=== PATIENT | male | born 1985 | race Caucasian/White ===

== ENCOUNTER 2023-07-14 21:45 | Inpatient (IN) | payer OTHER ==
[~2023-07-14] VITALS: Ht 180.3 cm; Wt 99.5 kg
[2023-07-14 22:28] LABS: BASOPHILS ABSOLUTE AUTO 0.04 K/mm3 (0.00-0.23); BASOPHILS PERCENT AUTO 0 % (0-2); EOSINOPHILS ABSOLUTE AUTO 0.02 K/mm3 (0.00-0.68); EOSINOPHILS PERCENT AUTO 0 % (0-6); Hematocrit 39.2 % (37.0-53.0); Hemoglobin 13.6 g/dL (13.5-17.5); IMMATURE GRAN ABSOLUTE AUTO 0.16 K/mm3 (0.00-0.10); IMMATURE GRAN PERCENT AUTO 1 % (0-1); LYMPHOCYTES ABSOLUTE AUTO 0.96 K/mm3 (0.84-5.20); LYMPHOCYTES PERCENT AUTO 7 % (21-46); MONOCYTES ABSOLUTE AUTO 0.67 K/mm3 (0.16-1.47); MONOCYTES PERCENT AUTO 5 % (4-13); Mean Corpuscular HGB 29.9 pg (26.0-34.0); Mean Corpuscular HGB Conc 34.7 g/dL (31.5-36.5); Mean Corpuscular Volume 86 fL (80-100); Mean Platelet Volume 10.6 fL (9.1-12.4); NEUTROPHILS ABSOLUTE AUTO 11.51 K/mm3 (1.96-9.15); NEUTROPHILS PERCENT AUTO 86 % (41-73); Platelet Count 265 K/mm3 (150-400); RDW Coefficient Variation 14.5 % (11.7-14.2); RDW Standard Deviation 46.2 fL (35.1-46.3); Red Blood Cell Count 4.55 M/mm3 (4.30-5.90); White Blood Cell Count 13.36 K/mm3 (4.00-11.30)
[2023-07-14 23:01] LABS: Albumin, Blood 2.3 g/dL (3.4-5.0); Albumin/Globulin Ratio 0.5 (0.8-1.8); Bilirubin, Total 0.9 mg/dL (0.1-1.0); Bun/Creatinine Ratio 14.5 (12.0-20.0); Calcium, Blood 7.7 mg/dL (8.5-10.1); Creatinine, Blood 1.1 mg/dL (0.60-1.20); Globulin, Blood 4.6 g/dL (2.2-4.0); Potassium, Blood 3.5 mmol/L (3.5-5.5); Total Protein, Blood 6.9 g/dL (6.4-8.2)
[2023-07-14 23:37] LABS: Source, Urine Clean Catch
[2023-07-14 23:39] LABS: Bilirubin, Urine Neg (Neg); Blood, Urine 2+ (Neg); Glucose Qualitative, Urine Neg (Neg); Ketones, Urine Neg (Neg); Leukocyte Esterase, Urine Neg (Neg); Nitrite, Urine Neg (Neg); Protein, Urine 2+ (Neg); Specific Gravity, Urine 1.005 (1.003-1.022); Urobilinogen, Urine 3+ (Normal); pH, Urine 6.5 (5.0-8.0)
[2023-07-15 00:15] LABS: Appearance, Urine Clear (Clear); Bacteria Rare /hpf; Color, Urine Yellow (P-Yellow); Red Blood Cells, Urine 0-2 /hpf (0-2); Squamous Epithelial Cells Not Seen /hpf (Few); White Blood Cells, Urine 0-2 /hpf (0-5)
[2023-07-15] MEDS ORDERED: ONDA4ODT MM (01:48)
[2023-07-15 02:06] LABS: Anti-Xa UFH, PHA Monitoring <0.10 IU/mL; International Normalized Ratio 1.25
[2023-07-15 05:30] LABS: BASOPHILS ABSOLUTE AUTO 0.01 K/mm3 (0.00-0.23); BASOPHILS PERCENT AUTO 0 % (0-2); EOSINOPHILS ABSOLUTE AUTO 0.01 K/mm3 (0.00-0.68); EOSINOPHILS PERCENT AUTO 0 % (0-6); Hematocrit 37.4 % (37.0-53.0); Hemoglobin 12.8 g/dL (13.5-17.5); IMMATURE GRAN ABSOLUTE AUTO 0.16 K/mm3 (0.00-0.10); IMMATURE GRAN PERCENT AUTO 1 % (0-1); LYMPHOCYTES ABSOLUTE AUTO 1.48 K/mm3 (0.84-5.20); LYMPHOCYTES PERCENT AUTO 13 % (21-46); MONOCYTES ABSOLUTE AUTO 0.77 K/mm3 (0.16-1.47); MONOCYTES PERCENT AUTO 7 % (4-13); Mean Corpuscular HGB 29.8 pg (26.0-34.0); Mean Corpuscular HGB Conc 34.2 g/dL (31.5-36.5); Mean Corpuscular Volume 87 fL (80-100); Mean Platelet Volume 10.9 fL (9.1-12.4); NEUTROPHILS ABSOLUTE AUTO 9.31 K/mm3 (1.96-9.15); NEUTROPHILS PERCENT AUTO 79 % (41-73); Platelet Count 255 K/mm3 (150-400); RDW Coefficient Variation 14.6 % (11.7-14.2); RDW Standard Deviation 46.5 fL (35.1-46.3); White Blood Cell Count 11.74 K/mm3 (4.00-11.30)
[2023-07-15 06:07] LABS: Albumin, Blood 2.3 g/dL (3.4-5.0); Albumin/Globulin Ratio 0.5 (0.8-1.8); Bun/Creatinine Ratio 13.5 (12.0-20.0); Calcium, Blood 7.7 mg/dL (8.5-10.1); Creatinine, Blood 1.11 mg/dL (0.60-1.20); Globulin, Blood 4.4 g/dL (2.2-4.0); Magnesium, Blood 2.2 mg/dL (1.6-2.4); Phosphorus, Blood 2.3 mg/dL (2.5-4.9); Potassium, Blood 3.7 mmol/L (3.5-5.5); Total Protein, Blood 6.7 g/dL (6.4-8.2)
--- NOTE | 2023-07-15 06:30 | NUR ---
SHIFT SUMMARY 37 YR M ADMITTED ON 07/14/23 FOR SUPERIOR MESENTERIC THROMBUS. FULL CODE. PT IS A&O X 4 AND INDEPENDANT IN THE ROOM. HE HAS NO C/O PAIN OR DISCOMFORT AT THIS TIME. ALSO NO C/O N/V THIS SHIFT. HE IS CURRENTLY ON A HEPARIN DRIP AND A SECOND IV WAS STARTED THIS SHIFT FOR ACCESS TO RUN LR. HE PRESENTED TO THIS UNIT W/ HIS AT BEDSIDE. SHE LEFT EARLY THIS A.M. FOR WORK AND HIS FATHER IS NOW IN THE ROOM WITH HIM. HE IS VERY PLEASANT AND COOPERATIVE WITH CARE.
[2023-07-15 07:22] VITALS: BP 112/72
[2023-07-15 15:46] VITALS: BP 118/68
[2023-07-15 18:16] LABS: Anti-Xa UFH, PHA Monitoring 0.16 IU/mL
--- NOTE | 2023-07-15 18:40 | NUR ---
SHIFT SUMMARY- PT IS A/O, PLESANT AND COOPERATIVE. DIET WAS ADVANCED TO CLEAR LIQUID TOLORATING WELL. HEPRIN IS INFUSING WITH MINIMAL IMPACT ON LABS, FOLLOWED PHARMACY TITRATION. RASH ON LOWER EXTREMITIES BEING TREATED WITH CREAM. WAS AT BEDSIDE THIS SHIFT. PT SLEPT INTERMITENTLY THROUGHOUT THE SHIFT. HIS BED IS IN THE LOW POSITON AND CALL LIGHT IS WITIN REACH.
[2023-07-15 19:22] VITALS: BP 112/73
[2023-07-16 02:18] VITALS: BP 116/67
[2023-07-16 05:50] LABS: Anti-Xa UFH, PHA Monitoring 0.26 IU/mL
[2023-07-16 07:16] VITALS: BP 119/73
[2023-07-16 07:53] LABS: Hematocrit 35.2 % (37.0-53.0); Hemoglobin 11.9 g/dL (13.5-17.5); Mean Corpuscular HGB 29.9 pg (26.0-34.0); Mean Corpuscular HGB Conc 33.8 g/dL (31.5-36.5); Mean Corpuscular Volume 88 fL (80-100); Mean Platelet Volume 11.4 fL (9.1-12.4); Platelet Count 318 K/mm3 (150-400); RDW Coefficient Variation 14.9 % (11.7-14.2); RDW Standard Deviation 48.6 fL (35.1-46.3); Red Blood Cell Count 3.98 M/mm3 (4.30-5.90); White Blood Cell Count 10.69 K/mm3 (4.00-11.30)
[2023-07-16 08:23] LABS: Albumin/Globulin Ratio 0.5 (0.8-1.8); Bilirubin, Total 0.8 mg/dL (0.1-1.0); Bun/Creatinine Ratio 13.3 (12.0-20.0); Calcium, Blood 7.6 mg/dL (8.5-10.1); Creatinine, Blood 1.05 mg/dL (0.60-1.20); Globulin, Blood 4.1 g/dL (2.2-4.0); Total Protein, Blood 6.1 g/dL (6.4-8.2)
[2023-07-16 15:01] VITALS: BP 118/78
--- NOTE | 2023-07-16 19:05 | NUR ---
SUMMARY- NO ACUTE EVENTS THIS SHIFT. PT HAD MINOR PARKER AND RLQ PAIN CONTROLLED BY TYLENOL. PT TOLERATED CLEAR LIQUID DIET. NO EMESIS. INDEPENDENT IN ROOM. AAOX4.
[2023-07-16 20:20] VITALS: BP 122/71
[2023-07-17 03:59] VITALS: BP 107/67
--- NOTE | 2023-07-17 04:52 | NUR ---
PT A/O, CALM/COOPERATIVE AND ABLE TO MAKE NEEDS KNOWN. SPOUSE AT BEDSIDE AND SUPPORTIVE. TOLERATING CLEAR DIET WITH NO N/V. INDEPENDENT IN ROOM. SLEPT WELL THROUGHOUT THE NIGHT IN BETWEEN CARE. ROUNDING COMPLETED. CONTINUITY OF CARE ENDORSED TO ON COMING NURSE.
[2023-07-17 07:10] VITALS: BP 118/74
--- NOTE | 2023-07-17 08:35 | NUR ---
ASSUMED CARE: RECIEVED REPORT FROM VENANCIO STOUT. PT SITTING ON EDGE OF BED, AT BEDSIDE. CT HERE TO COLLECT PT VIA WHEEL CHAIR FOR IMAGING. NO FURTHER NEEDS AT THIS TIME.
[2023-07-17 11:18] LABS: Hematocrit 36.8 % (37.0-53.0); Hemoglobin 12.2 g/dL (13.5-17.5); Mean Corpuscular HGB 29.4 pg (26.0-34.0); Mean Corpuscular HGB Conc 33.2 g/dL (31.5-36.5); Mean Corpuscular Volume 89 fL (80-100); Mean Platelet Volume 10.6 fL (9.1-12.4); Platelet Count 463 K/mm3 (150-400); RDW Standard Deviation 48.7 fL (35.1-46.3); Red Blood Cell Count 4.15 M/mm3 (4.30-5.90); White Blood Cell Count 11.51 K/mm3 (4.00-11.30)
--- NOTE | 2023-07-17 11:20 | NUR ---
DR ZIMMER WROTE AN ORDER FOR AN ECHO. AFTER SPEAKING WITH NURSING DONOR SERVICES TECHNICIAN IT WAS FOUND THAT [employer] IS GONE TODAY AND IT WOULD HAVE TO BE ORDERED STAT WITH CARDIOLOGY INVOLVEMENT TO BE DONE TODAY. CALL TO DR ZIMMER TO RELAY THIS. DR STATED HE WOULD DISCUSS FURTHER WITH DR CLARK AND RELAY BACK TO NURSE.
[2023-07-17 11:38] LABS: Albumin, Blood 2.1 g/dL (3.4-5.0); Albumin/Globulin Ratio 0.5 (0.8-1.8); Bilirubin, Total 0.5 mg/dL (0.1-1.0); Bun/Creatinine Ratio 9.2 (12.0-20.0); Calcium, Blood 7.6 mg/dL (8.5-10.1); Creatinine, Blood 0.97 mg/dL (0.60-1.20); Globulin, Blood 4.5 g/dL (2.2-4.0); Potassium, Blood 3.8 mmol/L (3.5-5.5); Total Protein, Blood 6.6 g/dL (6.4-8.2)
[2023-07-17 16:48] VITALS: BP 122/73
--- NOTE | 2023-07-17 17:41 | NUR ---
SHIFT SUMMARY: PT RESTING IN BED, AT BEDSIDE. BLOOD CULTURES COMPLETED. HESITANT TO SEND PT HOME DUE TO FEVERS OVER NIGHT AND INCREASED WBC THIS SHIFT. ECHO TO BE COMPLETED TOMORROW. PT TOLERATING LOW FAT DIET WELL. EDUCATED PT AND ON RESOURCES FOR HEALTHY MEAL PLANNING. NO ACUTE NEEDS OR CONCERNS AT THIS TIME.
[2023-07-17 21:24] VITALS: BP 108/74
[2023-07-18 05:14] VITALS: BP 118/78
[2023-07-18 05:27] LABS: BASOPHILS ABSOLUTE AUTO 0.03 K/mm3 (0.00-0.23); BASOPHILS PERCENT AUTO 0 % (0-2); EOSINOPHILS ABSOLUTE AUTO 0.03 K/mm3 (0.00-0.68); EOSINOPHILS PERCENT AUTO 0 % (0-6); Hematocrit 36.6 % (37.0-53.0); Hemoglobin 12.3 g/dL (13.5-17.5); IMMATURE GRAN ABSOLUTE AUTO 0.27 K/mm3 (0.00-0.10); IMMATURE GRAN PERCENT AUTO 2 % (0-1); LYMPHOCYTES ABSOLUTE AUTO 1.78 K/mm3 (0.84-5.20); LYMPHOCYTES PERCENT AUTO 13 % (21-46); MONOCYTES ABSOLUTE AUTO 1.07 K/mm3 (0.16-1.47); MONOCYTES PERCENT AUTO 8 % (4-13); Mean Corpuscular HGB 29.5 pg (26.0-34.0); Mean Corpuscular HGB Conc 33.6 g/dL (31.5-36.5); Mean Corpuscular Volume 88 fL (80-100); Mean Platelet Volume 10.5 fL (9.1-12.4); NEUTROPHILS ABSOLUTE AUTO 10.28 K/mm3 (1.96-9.15); NEUTROPHILS PERCENT AUTO 77 % (41-73); Platelet Count 599 K/mm3 (150-400); RDW Coefficient Variation 15.1 % (11.7-14.2); RDW Standard Deviation 48.4 fL (35.1-46.3); Red Blood Cell Count 4.17 M/mm3 (4.30-5.90); White Blood Cell Count 13.46 K/mm3 (4.00-11.30)
[2023-07-18 05:55] LABS: Albumin, Blood 2.3 g/dL (3.4-5.0); Albumin/Globulin Ratio 0.5 (0.8-1.8); Bilirubin, Total 0.5 mg/dL (0.1-1.0); Bun/Creatinine Ratio 10.8 (12.0-20.0); Calcium, Blood 8.2 mg/dL (8.5-10.1); Creatinine, Blood 1.02 mg/dL (0.60-1.20); Globulin, Blood 4.8 g/dL (2.2-4.0); Total Protein, Blood 7.1 g/dL (6.4-8.2)
[2023-07-18 07:15] VITALS: BP 117/70
[2023-07-18] MEDS ORDERED: SILD25T PO (11:54)
[2023-07-18 15:40] VITALS: BP 119/78
--- NOTE | 2023-07-18 17:34 | NUR ---
SHIFT SUMMARY PT IS AxOx4. PLEASANT AND COOPERATIVE WITH CARE. PT DENIES ANY PAIN, NAUSEA OR VOMITING THIS SHIFT. PT TOLERATED MEALS WITHOUT DIFFICULTY TODAY. ECHO COMPLTED TODAY. EXPECTED PLANS WERE TO DISCHARGE THIS AFTERNOON. UNFORTUNATELY, PT'S ORAL TEMP READ 101.9 AT AFTERNOON VITALS. PROVIDERS WERE NOTIFIED AND PLANS CHANGED TO CONTINUE TO MONITOR PT IN HOSPITAL OVERNIGHT. PT IS CURRENTLY RESTING IN BED. DENIES ANY NEEDS AT THIS TIME. FAMILY UPDATED ON PLAN OF CARE.
[2023-07-18 19:42] VITALS: BP 127/84
--- NOTE | 2023-07-19 02:58 | NUR ---
LATE PREVIOUS EXCELLENCE LEADER SUMMARY NOTE FROM 07/18/23 PATIENT SLEPT WELL OVERNIGHT, RESPONDED WELL TO TYLENOL FOR TEMP OF 100.7 EARLY IN SHIFT. NO FURTHER FEVER OVERNIGHT. NO COMPLAINTS OF PAIN OR DISCOMFORT, OOB INDEPENDENTLY TO BATHROOM . HOPING FOR DISCHARGE
--- NOTE | 2023-07-19 04:35 | NUR ---
SHIFT SUMMARY SHANNA WAS ALERT AND FULLY ORIENTED AT THE START OF THE SHIFT. PT IS COOPERATIVE WITH CARE AND PLEASANT. IN ROOM UNTIL 0400. PT HAS NO ACUTE CHANGES THIS SHIFT, AND NO COMPLAINTS OF PAIN OR DISCOMFORT. PTS TEMPERATURE HAS REDUCED FROM PREVIOUS 101.9, WILL CONTINUE TO MONITOR. PT IS RESTING IN BED AT A LOW POSITION WITH THE CALL LIGHT IN REACH.
[2023-07-19 05:36] LABS: BASOPHILS ABSOLUTE AUTO 0.02 K/mm3 (0.00-0.23); BASOPHILS PERCENT AUTO 0 % (0-2); EOSINOPHILS ABSOLUTE AUTO 0.01 K/mm3 (0.00-0.68); EOSINOPHILS PERCENT AUTO 0 % (0-6); Hematocrit 35.1 % (37.0-53.0); Hemoglobin 11.9 g/dL (13.5-17.5); IMMATURE GRAN ABSOLUTE AUTO 0.21 K/mm3 (0.00-0.10); IMMATURE GRAN PERCENT AUTO 2 % (0-1); LYMPHOCYTES ABSOLUTE AUTO 1.63 K/mm3 (0.84-5.20); LYMPHOCYTES PERCENT AUTO 12 % (21-46); MONOCYTES ABSOLUTE AUTO 1.18 K/mm3 (0.16-1.47); MONOCYTES PERCENT AUTO 9 % (4-13); Mean Corpuscular HGB 29.8 pg (26.0-34.0); Mean Corpuscular HGB Conc 33.9 g/dL (31.5-36.5); Mean Corpuscular Volume 88 fL (80-100); Mean Platelet Volume 10.1 fL (9.1-12.4); NEUTROPHILS ABSOLUTE AUTO 10.83 K/mm3 (1.96-9.15); NEUTROPHILS PERCENT AUTO 78 % (41-73); Platelet Count 683 K/mm3 (150-400); RDW Coefficient Variation 15.1 % (11.7-14.2); RDW Standard Deviation 47.9 fL (35.1-46.3); White Blood Cell Count 13.88 K/mm3 (4.00-11.30)
[2023-07-19 06:03] LABS: Albumin, Blood 2.2 g/dL (3.4-5.0); Albumin/Globulin Ratio 0.5 (0.8-1.8); Bilirubin, Total 0.6 mg/dL (0.1-1.0); Bun/Creatinine Ratio 11.5 (12.0-20.0); Creatinine, Blood 1.04 mg/dL (0.60-1.20); Globulin, Blood 4.7 g/dL (2.2-4.0); Phosphorus, Blood 2.8 mg/dL (2.5-4.9); Potassium, Blood 4.2 mmol/L (3.5-5.5); Total Protein, Blood 6.9 g/dL (6.4-8.2)
[2023-07-19 07:38] VITALS: BP 118/67
[2023-07-19 16:05] VITALS: BP 112/72
--- NOTE | 2023-07-19 16:13 | NUR ---
RN NOTIFIED DR. CLARK OF POSITIVE BLOOD CULTURES AT 1610.
[2023-07-19 16:14] LABS: Campylobacter Sp Not Detected (NOT DETECT)
[2023-07-19 16:15] LABS: Adenovirus F 40/41 Not Detected (NOT DETECT); Astrovirus Not Detected (NOT DETECT); Cryptosporidium Not Detected (NOT DETECT); Cyclospora Cayetanensis Not Detected (NOT DETECT); E. Coli O157 Not Detected (NOT DETECT); Entamoeba Histolytica Not Detected (NOT DETECT); Enteroaggregative E. coli-EAEC Not Detected (NOT DETECT); Enteropathogenic E. coli-EPEC Not Detected (NOT DETECT); Enterotoxigenic E. coli-ETEC Not Detected (NOT DETECT); Giardia Lamblia Not Detected (NOT DETECT); Norovirus GI/GII Not Detected (NOT DETECT); Plesiomonas Shigelloides Not Detected (NOT DETECT); Rotavirus A Not Detected (NOT DETECT); Salmonella Sp Not Detected (NOT DETECT); Sapovirus Not Detected (NOT DETECT); Shiga Toxin-prod E. coli-STEC Not Detected (NOT DETECT); Shigella/Enteroin E. coli-EIEC Not Detected (NOT DETECT); Vibrio Cholerae Not Detected (NOT DETECT); Vibrio Sp Not Detected (NOT DETECT); Yersinia Enterocolitica Not Detected (NOT DETECT)
[2023-07-19 17:34] LABS: Adenovirus Not Detected (NOT DETECT); Bordetella pertussis Not Detected (NOT DETECT); Chlamydophila pneumoniae Not Detected (NOT DETECT); Coronavirus 229E Not Detected (NOT DETECT); Coronavirus HKU1 Not Detected (NOT DETECT); Coronavirus NL63 Not Detected (NOT DETECT); Coronavirus OC43 Not Detected (NOT DETECT); Human Metapneumovirus Not Detected (NOT DETECT); Human Rhinovirus/Enterovirus Not Detected (NOT DETECT); Influenza A/2009-H1 Not Detected (NOT DETECT); Influenza A/H1 Not Detected (NOT DETECT); Influenza A/H3 Not Detected (NOT DETECT); Influenza B Not Detected (NOT DETECT); Mycoplasma pneumoniae Not Detected (NOT DETECT); Parainfluenza Virus 1 Not Detected (NOT DETECT); Parainfluenza Virus 2 Not Detected (NOT DETECT); Parainfluenza Virus 3 Not Detected (NOT DETECT); Parainfluenza Virus 4 Not Detected (NOT DETECT); Respiratory Syncytial Virus Not Detected (NOT DETECT); SARS-Cov-2 (COVID-19), BioFire Not Detected (NOT DETECT)
--- NOTE | 2023-07-19 19:27 | NUR ---
SUMMARY- AAOX4. INDEPENDENT IN ROOM. PT HAD TEMP OF 101.6 THIS SHIFT. SPUTUM SAMPLE COLLECTED FROM PATIENT 10 MINUTES AFTER VANCOMYCIN STARTED. PT DENIES ANY PAIN THIS SHIFT, BUT COMPLAINS OF FEELING, "FOGGY" AND FEELING TIRED THIS SHIFT. RN ENCOURAGED PT TO WALK THE HALLS AND GET OUT OF HIS ROOM, SO PT WENT FOR WALK TONIGHT.
[2023-07-19 19:54] VITALS: BP 117/85
[2023-07-19 20:29] LABS: Acinetobacter baumannii DNA Not Detected copy/mL (NOT DETECT); Adenovirus DNA Not Detected (NOT DETECT); Chlamydia pneumonia Not Detected (NOT DETECT); Enterobacter cloacae DNA Not Detected copy/mL (NOT DETECT); Escherichia coli DNA Not Detected copy/mL (NOT DETECT); Haemophilus influenzae DNA Not Detected copy/mL (NOT DETECT); Human Coronavirus RNA Not Detected (NOT DETECT); Human Metapneumovirus RNA Not Detected (NOT DETECT); Influenza virus A RNA Not Detected (NOT DETECT); Influenza virus B RNA Not Detected (NOT DETECT); Klebsiella aerogenes DNA Not Detected copy/mL (NOT DETECT); Klebsiella oxytoca DNA Not Detected copy/mL (NOT DETECT); Klebsiella pneumoniae DNA Not Detected copy/mL (NOT DETECT); Legionella pneumophila Not Detected (NOT DETECT); Moraxella catarrhalis DNA Not Detected copy/mL (NOT DETECT); Mycoplasma pneumoniae Not Detected (NOT DETECT); Parainfluenza virus RNA Not Detected (NOT DETECT); Proteus sp DNA Not Detected copy/mL (NOT DETECT); Pseudomonas aeruginosa DNA Not Detected copy/mL (NOT DETECT); Respiratory syncytial Vir RNA Not Detected (NOT DETECT); Rhinovirus+Enterovirus RNA Not Detected (NOT DETECT); Serratia marcescens DNA Not Detected copy/mL (NOT DETECT); Staphylococcus aureus DNA Not Detected copy/mL (NOT DETECT); Streptococcus agalactiae DNA Not Detected copy/mL (NOT DETECT); Streptococcus pneumoniae DNA Not Detected copy/mL (NOT DETECT); Streptococcus pyogenes DNA Not Detected copy/mL (NOT DETECT)
--- NOTE | 2023-07-20 04:37 | NUR ---
SHIFT SUMMARY SHANNA WAS ALERT AND FULLY ORIENTED AT THE START OF SHIFT. HE HAS NO COMPLAINTS AND HAD NO ACUTE EVENTS. PT CLAIMS TO BE FEELING BETTER THAN PREVIOUS SHIFTS, AND IS READY TO GO HOME SOON HE CAN. PT SLEPT THROUGH THE NIGHT, SPOUSE STAYED WITH HIM. PT CURRENTLY SLEEPING IN BED WITH CALL LIGHT IN REACH.
[2023-07-20 04:42] VITALS: BP 110/70
[2023-07-20 05:55] LABS: Hematocrit 34.3 % (37.0-53.0); Hemoglobin 11.3 g/dL (13.5-17.5); Mean Corpuscular HGB 29.3 pg (26.0-34.0); Mean Corpuscular HGB Conc 32.9 g/dL (31.5-36.5); Mean Corpuscular Volume 89 fL (80-100); Mean Platelet Volume 10.1 fL (9.1-12.4); Platelet Count 723 K/mm3 (150-400); RDW Standard Deviation 49.1 fL (35.1-46.3); Red Blood Cell Count 3.86 M/mm3 (4.30-5.90); White Blood Cell Count 14.33 K/mm3 (4.00-11.30)
[2023-07-20 07:56] VITALS: BP 123/77
[2023-07-20 15:29] VITALS: BP 120/77
--- NOTE | 2023-07-20 16:56 | NUR ---
SUMMARY- NO ACUTE EVENTS THIS SHIFT. HIHGHEST TEMP THIS SHIFT = 99.8. PT DENIED PAIN THIS SHIFT. PT WALKED THE HALLS X1 THIS SHIFT. INDEPENDENT IN ROOM.
[2023-07-20 19:27] VITALS: BP 132/77
--- NOTE | 2023-07-21 04:59 | NUR ---
SHIFT SUMMARY SHANNA IS ALERT AND FULLY ORIENTED. THE IV SITE IN HIS RIGHT WRIST WAS SWOLLEN RED AND PAINFUL. I TRIED UNSUCESSFULLY TO START ANOTHER IV, AND THEN HAD THE CHARGE NURSE PLACE IT FOR ME. NEW IV IS PATENT. NO OTHER CHANGES IN CONDITION. PT RESTING IN BED WITH CALL LIGHT IN REACH AND IN ROOM.
[2023-07-21 05:26] VITALS: BP 110/65
[2023-07-21 05:35] LABS: Hematocrit 34.6 % (37.0-53.0); Hemoglobin 11.4 g/dL (13.5-17.5); Mean Corpuscular HGB 29.3 pg (26.0-34.0); Mean Corpuscular HGB Conc 32.9 g/dL (31.5-36.5); Mean Corpuscular Volume 89 fL (80-100); Mean Platelet Volume 9.9 fL (9.1-12.4); Platelet Count 734 K/mm3 (150-400); RDW Coefficient Variation 14.8 % (11.7-14.2); RDW Standard Deviation 48.4 fL (35.1-46.3); Red Blood Cell Count 3.89 M/mm3 (4.30-5.90)
[2023-07-21 07:32] VITALS: BP 111/74
[2023-07-21] MEDS ORDERED: ELIQUIS5 M2 PO ×2 (15:51→15:52)
[2023-07-21 15:54] VITALS: BP 125/72
--- NOTE | 2023-07-21 17:17 | NUR ---
DDISCHHARGE NOTE- PT AND SPOUSE WERE GIVEN VERBAL AND WRITTEN DISCHARGE INSTRUCTIONS AND ACKNOWLEDGED UNDERSTANDING OF THEM. PT IV WAS DC'D AND THERE WERE NO S&S OF DISTRESS NOTED AT THE TIME OF DISCHARGE. PT ESCORTED OUT VIA WC BY THE [employer] TENDER.
[2023-07-21 20:06] LABS: HIV AB/P24 AG SCREEN Non Reactive (Non Reactive)
[2023-07-22 08:11] LABS: HBSAG SCREEN Negative (Negative); HCV AB Non Reactive (Non Reactive); HEP A AB, IGM Negative (Negative); HEP B CORE AB, TOT Negative (Negative)
[2023-07-22] MEDS ORDERED: KETO15TC TOP (13:06)
== END 2023-07-21 16:18 | disposition home or self-care (01) | DRG 394 ==
LOC: ER 21:45 → MEDS 21:46
PROVIDERS: Family Medicine; Family Medicine Adult Medicine; Hospitalist; Student in an Organized Health Care Education/Training Program; ADMIT Internal Medicine
DX: K55.039 Acute (reversible) ischemia of large intestine, extent unspecified (principal); R65.10 Systemic inflammatory response syndrome (SIRS) of non-infectious origin without acute organ dysfunction; J30.2 Other seasonal allergic rhinitis; K82.8 Other specified diseases of gallbladder; F10.90 Alcohol use, unspecified, uncomplicated; R16.2 Hepatomegaly with splenomegaly, not elsewhere classified; K76.0 Fatty (change of) liver, not elsewhere classified; D73.5 Infarction of spleen; Z79.899 Other long term (current) drug therapy; B35.4 Tinea corporis
CPT/HCPCS: 0202U; 36415; 71046; 74177; 76705; 80053; 81001; 81240; 81241; 83036; 83605; 83690; 83735; 84100; 84145; 85025; 85027; 85520; 85610; 85730; 86147; 86592; 86704; 86708; 86803; 87040; 87076; 87340; 87389; 87507; 87633; 93005; 93010; 93306; 94760; 96360; 96361; 96365; 96366; 96375; 96376; 99285-25; A9270; G0378; J0295; J1644; J3370; J7030; J7050; J7120; Q9967

== ENCOUNTER 2023-07-22 12:30 | Inpatient (IN) | payer OTHER ==
[~2023-07-22] VITALS: Ht 180.3 cm; Wt 95.5 kg
[~2023-07-22 12:30] MED LIST: ELIQUIS5 M2 PO; ONDA4ODT MM; SILD25T PO
[2023-07-22] MEDS ORDERED: KETO15TC TOP (13:06)
[2023-07-22 13:33] VITALS: BP 113/74
--- NOTE | 2023-07-22 14:23 | NUR ---
DIRECT ADMIT PT IS ALERT AND ORIENTED X4. R/A. DENIES CP AND PRESSURE. SKIN INTACT. AT BEDSIDE. INDEPENDENT IN THE ROOM. DENIES FEVER, CHILLS. REPORTS STOMACH PAIN THAT FEELS LIKE CONSTIPATION STARTING 2-3 DAYS AGO. PT LAST BM WAS THIS MORNING. PER PT IS WAS SOFT AND NORMAL. ACTIVE BOWEL SOUNDS IN ALL QUADS. DR. CLARK NOTIFIED OF PT ARRIVAL. ABLE TO MAKE NEEDS KNOWN. BED IS IN THE LOWEST POSITION.
[2023-07-22 15:00] LABS: BASOPHILS ABSOLUTE AUTO 0.01 K/mm3 (0.00-0.23); BASOPHILS PERCENT AUTO 0 % (0-2); EOSINOPHILS ABSOLUTE AUTO 0.01 K/mm3 (0.00-0.68); EOSINOPHILS PERCENT AUTO 0 % (0-6); Hematocrit 33.6 % (37.0-53.0); IMMATURE GRAN ABSOLUTE AUTO 0.12 K/mm3 (0.00-0.10); IMMATURE GRAN PERCENT AUTO 1 % (0-1); LYMPHOCYTES PERCENT AUTO 15 % (21-46); MONOCYTES PERCENT AUTO 10 % (4-13); Mean Corpuscular HGB 29.4 pg (26.0-34.0); Mean Corpuscular HGB Conc 32.7 g/dL (31.5-36.5); Mean Corpuscular Volume 90 fL (80-100); Mean Platelet Volume 9.5 fL (9.1-12.4); NEUTROPHILS ABSOLUTE AUTO 7.76 K/mm3 (1.96-9.15); NEUTROPHILS PERCENT AUTO 73 % (41-73); Platelet Count 691 K/mm3 (150-400); RDW Coefficient Variation 14.7 % (11.7-14.2); RDW Standard Deviation 48.3 fL (35.1-46.3); Red Blood Cell Count 3.74 M/mm3 (4.30-5.90)
[2023-07-22 20:05] VITALS: BP 112/68
[2023-07-23 02:49] VITALS: BP 116/68
--- NOTE | 2023-07-23 04:29 | NUR ---
SHIFT SUMMARY PT IS A&O X4. PT IS OF PLEASANT AFFECT, ABLE TO MAKE HIS NEEDS KNOWN, CALLS APPROPRIATELY, AND IS INDEPENDENT IN ROOM. PTS AT BEDSIDE T/O NIGHT. PT DENIES CHEST PAIN/PRESSURE/TIGHTNESS. PT DENIES PAIN AND REPORTS HIS BACK IS SORE FROM LAYING IN BED FOR A LONG PERIOD OF TIME-HEAT PAD APPLIED TO BACK. NO ACUTE CHANGES OR S/S OF DISTRESS NOTED. BED IS LOCKED IN THE LOWEST POSITION WITH CALL LIGHT IN REACH.
[2023-07-23 05:54] LABS: BASOPHILS ABSOLUTE AUTO 0.01 K/mm3 (0.00-0.23); BASOPHILS PERCENT AUTO 0 % (0-2); EOSINOPHILS ABSOLUTE AUTO 0.01 K/mm3 (0.00-0.68); EOSINOPHILS PERCENT AUTO 0 % (0-6); Hematocrit 34.1 % (37.0-53.0); Hemoglobin 11.1 g/dL (13.5-17.5); IMMATURE GRAN ABSOLUTE AUTO 0.11 K/mm3 (0.00-0.10); IMMATURE GRAN PERCENT AUTO 1 % (0-1); LYMPHOCYTES ABSOLUTE AUTO 1.66 K/mm3 (0.84-5.20); LYMPHOCYTES PERCENT AUTO 14 % (21-46); MONOCYTES ABSOLUTE AUTO 1.15 K/mm3 (0.16-1.47); MONOCYTES PERCENT AUTO 10 % (4-13); Mean Corpuscular HGB 29.1 pg (26.0-34.0); Mean Corpuscular HGB Conc 32.6 g/dL (31.5-36.5); Mean Corpuscular Volume 90 fL (80-100); NEUTROPHILS ABSOLUTE AUTO 8.86 K/mm3 (1.96-9.15); NEUTROPHILS PERCENT AUTO 75 % (41-73); Platelet Count 644 K/mm3 (150-400); RDW Coefficient Variation 14.6 % (11.7-14.2); RDW Standard Deviation 47.9 fL (35.1-46.3); Red Blood Cell Count 3.81 M/mm3 (4.30-5.90)
[2023-07-23 06:21] LABS: Albumin, Blood 2.2 g/dL (3.4-5.0); Albumin/Globulin Ratio 0.4 (0.8-1.8); Bilirubin, Total 0.6 mg/dL (0.1-1.0); Bun/Creatinine Ratio 8.7 (12.0-20.0); Calcium, Blood 8.5 mg/dL (8.5-10.1); Creatinine, Blood 1.15 mg/dL (0.60-1.20); Globulin, Blood 5.3 g/dL (2.2-4.0); Total Protein, Blood 7.5 g/dL (6.4-8.2)
[2023-07-23 07:56] VITALS: BP 122/75
[2023-07-23 15:35] VITALS: BP 127/73
--- NOTE | 2023-07-23 17:37 | NUR ---
SHIFT SUMMARY PT INDEPENDENT IN ROOM. REPORTS ABDOMEN SORE BUT DENIES PAIN AND NO REQUESTS FOR PAIN MEDS. STATES HE IS HAVING NORMAL BMS. NO FEVER NOTED TODAY. REPORTS FEELING WELL.
[2023-07-23 20:20] VITALS: BP 120/71
--- NOTE | 2023-07-24 04:46 | NUR ---
SHIFT SUMMARY PT IS A&O4, INDEPENDENT IN THE ROOM, AT BEDSIDE THROUGH THE NIGHT, RA, VSS, PRN PAIN MEDICATION GIVEN X1 PER MAR FOR BACK PAIN, NO ACUTE OVERNIGHT EVENTS, CONTINUE POC
[2023-07-24 04:47] LABS: BASOPHILS ABSOLUTE AUTO 0.01 K/mm3 (0.00-0.23); BASOPHILS PERCENT AUTO 0 % (0-2); EOSINOPHILS ABSOLUTE AUTO 0.01 K/mm3 (0.00-0.68); EOSINOPHILS PERCENT AUTO 0 % (0-6); Hematocrit 33.6 % (37.0-53.0); Hemoglobin 11.1 g/dL (13.5-17.5); IMMATURE GRAN PERCENT AUTO 1 % (0-1); LYMPHOCYTES ABSOLUTE AUTO 1.58 K/mm3 (0.84-5.20); LYMPHOCYTES PERCENT AUTO 15 % (21-46); MONOCYTES ABSOLUTE AUTO 0.96 K/mm3 (0.16-1.47); MONOCYTES PERCENT AUTO 9 % (4-13); Mean Corpuscular HGB 29.5 pg (26.0-34.0); Mean Corpuscular Volume 89 fL (80-100); Mean Platelet Volume 9.3 fL (9.1-12.4); NEUTROPHILS ABSOLUTE AUTO 8.06 K/mm3 (1.96-9.15); NEUTROPHILS PERCENT AUTO 75 % (41-73); Platelet Count 669 K/mm3 (150-400); RDW Coefficient Variation 14.5 % (11.7-14.2); RDW Standard Deviation 47.8 fL (35.1-46.3); Red Blood Cell Count 3.76 M/mm3 (4.30-5.90); White Blood Cell Count 10.72 K/mm3 (4.00-11.30)
[2023-07-24 05:12] LABS: Albumin, Blood 2.3 g/dL (3.4-5.0); Albumin/Globulin Ratio 0.4 (0.8-1.8); Bilirubin, Total 0.5 mg/dL (0.1-1.0); Bun/Creatinine Ratio 8.5 (12.0-20.0); Calcium, Blood 8.6 mg/dL (8.5-10.1); Creatinine, Blood 1.18 mg/dL (0.60-1.20); Globulin, Blood 5.7 g/dL (2.2-4.0); Potassium, Blood 3.9 mmol/L (3.5-5.5)
[2023-07-24 07:26] VITALS: BP 106/67
[2023-07-24 15:11] VITALS: BP 123/74
--- NOTE | 2023-07-24 16:06 | NUR ---
SHIFT SUMMARY PT C/O FEELING DEPRESSED THIS SHIFT, ENCOURAGED TO WALK IN HALLWAYS WITH SPOUSE, SPOUSE VERY ENCOURAGING WITH THIS WELL. PATIENT STATED IT HELPED HIS SPIRITS WELL DISTRACTION WITH FAMILY VISITING AND [facility] GAME ON TV. VSS THIS SHIFT, NO C/O PAIN. AMBULATING WELL, TOLERATING ABX. TOLERATING PO MEDS AND FOOD. WILL CONTINUE TO MONITOR
[2023-07-24 20:56] VITALS: BP 120/74
[2023-07-25 04:17] VITALS: BP 114/68
[2023-07-25 05:17] LABS: BASOPHILS ABSOLUTE AUTO 0.02 K/mm3 (0.00-0.23); BASOPHILS PERCENT AUTO 0 % (0-2); EOSINOPHILS ABSOLUTE AUTO 0.04 K/mm3 (0.00-0.68); EOSINOPHILS PERCENT AUTO 0 % (0-6); Hematocrit 31.5 % (37.0-53.0); Hemoglobin 10.2 g/dL (13.5-17.5); IMMATURE GRAN ABSOLUTE AUTO 0.09 K/mm3 (0.00-0.10); IMMATURE GRAN PERCENT AUTO 1 % (0-1); LYMPHOCYTES ABSOLUTE AUTO 1.31 K/mm3 (0.84-5.20); LYMPHOCYTES PERCENT AUTO 14 % (21-46); MONOCYTES ABSOLUTE AUTO 0.74 K/mm3 (0.16-1.47); MONOCYTES PERCENT AUTO 8 % (4-13); Mean Corpuscular HGB 29.1 pg (26.0-34.0); Mean Corpuscular HGB Conc 32.4 g/dL (31.5-36.5); Mean Corpuscular Volume 90 fL (80-100); Mean Platelet Volume 9.7 fL (9.1-12.4); NEUTROPHILS PERCENT AUTO 77 % (41-73); Platelet Count 468 K/mm3 (150-400); RDW Coefficient Variation 14.6 % (11.7-14.2); RDW Standard Deviation 48.2 fL (35.1-46.3)
[2023-07-25 05:47] LABS: Albumin, Blood 2.2 g/dL (3.4-5.0); Albumin/Globulin Ratio 0.4 (0.8-1.8); Bilirubin, Total 0.4 mg/dL (0.1-1.0); Bun/Creatinine Ratio 8.6 (12.0-20.0); Calcium, Blood 8.3 mg/dL (8.5-10.1); Creatinine, Blood 1.05 mg/dL (0.60-1.20); Globulin, Blood 5.2 g/dL (2.2-4.0); Potassium, Blood 3.8 mmol/L (3.5-5.5); Total Protein, Blood 7.4 g/dL (6.4-8.2)
--- NOTE | 2023-07-25 06:41 | NUR ---
END OF SHIFT SUMMARY PT SLEPT ON AND OFF THROUGHOUT THE NIGHT. VSS, AFEBRILE, PT A&O x4. PT CALM AND COOPERATIVE WITH CARE PROVIDED. PT C/O MID-BACK PAIN. PAIN MANAGED WITH PRN APAP x2. ROOMING-IN WITH PT. PT CALLS APPROPRIATELY, IS ABLE TO MAKE NEEDS KNOWN. CALL LIGHT WITHIN REACH, WCTM.
[2023-07-25 07:39] VITALS: BP 117/75
[2023-07-25 15:54] VITALS: BP 113/70
--- NOTE | 2023-07-25 18:40 | NUR ---
ASSUMED CARE OF PT @ 1700.
--- NOTE | 2023-07-25 18:40 | NUR ---
ASSUMED CARE OF PT @ 1700.
[2023-07-25 19:44] VITALS: BP 115/64
[2023-07-26 03:05] VITALS: BP 123/74
[2023-07-26 04:58] LABS: BASOPHILS ABSOLUTE AUTO 0.01 K/mm3 (0.00-0.23); BASOPHILS PERCENT AUTO 0 % (0-2); EOSINOPHILS ABSOLUTE AUTO 0.11 K/mm3 (0.00-0.68); EOSINOPHILS PERCENT AUTO 1 % (0-6); Hematocrit 31.3 % (37.0-53.0); IMMATURE GRAN ABSOLUTE AUTO 0.08 K/mm3 (0.00-0.10); IMMATURE GRAN PERCENT AUTO 1 % (0-1); LYMPHOCYTES ABSOLUTE AUTO 1.67 K/mm3 (0.84-5.20); LYMPHOCYTES PERCENT AUTO 21 % (21-46); MONOCYTES PERCENT AUTO 11 % (4-13); Mean Corpuscular HGB Conc 31.9 g/dL (31.5-36.5); Mean Corpuscular Volume 91 fL (80-100); Mean Platelet Volume 10.4 fL (9.1-12.4); NEUTROPHILS ABSOLUTE AUTO 5.31 K/mm3 (1.96-9.15); NEUTROPHILS PERCENT AUTO 66 % (41-73); Platelet Count 495 K/mm3 (150-400); RDW Coefficient Variation 14.6 % (11.7-14.2); Red Blood Cell Count 3.45 M/mm3 (4.30-5.90); White Blood Cell Count 8.08 K/mm3 (4.00-11.30)
[2023-07-26 06:00] LABS: Alanine Aminotransfer (ALT/SGP 53 U/L (12-78); Albumin, Blood 2.1 g/dL (3.4-5.0); Albumin/Globulin Ratio 0.4 (0.8-1.8); Alk Phos 139 U/L (50-136); Aspartate Aminotrans (AST/SGOT 30 U/L (12-37); Bilirubin, Direct <0.1 mg/dL (0.0-0.3); Bilirubin, Indirect Unable to Calculate mg/dL (0.1-0.7); Bilirubin, Total 0.3 mg/dL (0.1-1.0); Globulin, Blood 5.2 g/dL (2.2-4.0); Total Protein, Blood 7.3 g/dL (6.4-8.2)
[2023-07-26 07:29] VITALS: BP 106/69
--- NOTE | 2023-07-26 08:45 | NUR ---
END OF SHIFT SUMMARY PT PLEASANT AND COOPERATIVE WITH CARE PROVIDED. PT A&O x4, VSS, AFEBRILE. UNEVENTFUL OVERNIGHT. PT RECEIVED IV ANTIBIOTICS. NO C/O PAIN/DISCOMFORT. PT DENIED CP, SOB AND PARKER. PAIN MANAGED WITH PRN APAP EFFECTIVE FOR PT'S CHRONIC BACK PAIN. PT'S ROOMING IN WITH PT. PT ABLE TO MAKE NEEDS KNOWN, CALL LIGHT WITHIN REACH, WCTM.
--- NOTE | 2023-07-26 14:00 | NUR ---
SHIFT SUMMARY PT IS A&O, PLEASANT AND CO-OP. UP INDEPENDENTLY IN RM AND TO BTHRM NEEDED. WALKS AROUND RM FOR EXERCISE. RECEIVING IV ABX PER EMAR. BCX'S DRAWN AGAIN THIS AM. NO C/O. DENIED N/V. RECEIVING ABD US AT THIS TIME. CALL LT IN REACH.
[2023-07-26 15:32] VITALS: BP 117/66
--- NOTE | 2023-07-26 17:13 | NUR ---
UNSURE WHEN SHANTE WILL BE PLANNED. UNABLE TO CONFIRM AT THIS POINT. WILL MAKE PT NPO AT MIDNIGHT INCASE IT WILL OCCUR TOMORROW MORNING.
[2023-07-26 19:54] VITALS: BP 119/68
[2023-07-27 02:52] VITALS: BP 101/60
--- NOTE | 2023-07-27 03:32 | NUR ---
SHIFT SUMMARY. SHIFT HAS BEEN MOSTLY UNREMARKABLE. PT AOX4, PLEASANT, COOPERATIVE WITH CARE. INDEPENDENT WITHIN ROOM, CALLS APPROPRIATELY FOR ASSISTANCE. COMPLAINTS OF MILD PAIN EARLY IN SHIFT WHICH HAVE BEEN MANAGED VIA PRN TYLENOL. SATS WELL ON ROOM AIR. HAS SLEPT THROUGH MOST OF SHIFT THUS FAR. BED LOCKED IN LOWEST POSITION. [facility]
[2023-07-27 05:21] LABS: BASOPHILS ABSOLUTE AUTO 0.01 K/mm3 (0.00-0.23); BASOPHILS PERCENT AUTO 0 % (0-2); EOSINOPHILS PERCENT AUTO 0 % (0-6); Hematocrit 32.7 % (37.0-53.0); Hemoglobin 10.5 g/dL (13.5-17.5); IMMATURE GRAN ABSOLUTE AUTO 0.07 K/mm3 (0.00-0.10); IMMATURE GRAN PERCENT AUTO 1 % (0-1); LYMPHOCYTES ABSOLUTE AUTO 1.41 K/mm3 (0.84-5.20); LYMPHOCYTES PERCENT AUTO 23 % (21-46); MONOCYTES ABSOLUTE AUTO 0.65 K/mm3 (0.16-1.47); MONOCYTES PERCENT AUTO 11 % (4-13); Mean Corpuscular HGB 28.8 pg (26.0-34.0); Mean Corpuscular HGB Conc 32.1 g/dL (31.5-36.5); Mean Corpuscular Volume 90 fL (80-100); Mean Platelet Volume 9.6 fL (9.1-12.4); NEUTROPHILS ABSOLUTE AUTO 3.93 K/mm3 (1.96-9.15); NEUTROPHILS PERCENT AUTO 65 % (41-73); Platelet Count 538 K/mm3 (150-400); RDW Coefficient Variation 14.6 % (11.7-14.2); RDW Standard Deviation 47.8 fL (35.1-46.3); Red Blood Cell Count 3.64 M/mm3 (4.30-5.90); White Blood Cell Count 6.07 K/mm3 (4.00-11.30)
[2023-07-27 05:48] LABS: Albumin, Blood 2.2 g/dL (3.4-5.0); Albumin/Globulin Ratio 0.4 (0.8-1.8); Bilirubin, Total 0.3 mg/dL (0.1-1.0); Bun/Creatinine Ratio 7.8 (12.0-20.0); Calcium, Blood 8.5 mg/dL (8.5-10.1); Creatinine, Blood 1.02 mg/dL (0.60-1.20); Globulin, Blood 5.3 g/dL (2.2-4.0); Potassium, Blood 3.9 mmol/L (3.5-5.5); Total Protein, Blood 7.5 g/dL (6.4-8.2)
[2023-07-27 07:28] VITALS: BP 119/73
[2023-07-27 08:10] LABS: HEP A AB, IGM Negative (Negative)
[2023-07-27 15:13] VITALS: BP 122/72
--- NOTE | 2023-07-27 16:29 | NUR ---
SUMMARY- PT A/O X4, INDEPENDANT IN ROOM. TOLERATING FOOD AND FLUID. STATES HE HAS ABD TENDERNESS/PAIN INTERMITTANTLY. ALSO C/O LOW BACK PAIN STATES FROM INACTIVITY FOR PAST FEW WEEKS. MEDICATED WITH TYLENOL- EFFECTIVE FOR PAIN. PT HAS BEEN AMBULATING IN THE HALLWAY FOR EXERCISE. WENT DOEN FOR MRI AT 1515, AWAITING RESULTS. IN ROOM ALL DAY, SUPPORTIVE IN CARE. HOPING TO GO HOME TOMORROW. WILL REPORT TO CYNDY STOUT.
[2023-07-27 19:24] VITALS: BP 112/90
--- NOTE | 2023-07-28 04:27 | NUR ---
SHIFT SUMMARY. SHIFT HAS BEEN UNREMARKABLE. PT IS AOX4, PLEASANT, COOPERATIVE WITH CARE. HAS BEEN AT BEDSIDE THROUGHOUT SHIFT. PT HAD SOME MILD PAIN THIS MORNING THAT HAS BEEN MANAGED VIA PRN TYLENOL. PT HAS SLEPT THROUGH MOST OF SHIFT. ABX ADMINISTERED ON SCHEDULE. PT CALLS APPROPRIATELY FOR ASSISTANCE AND IS ABLE TO MKAE NEEDS KNOWN. BED LOCKED IN LOWEST POSITION. CALL LIGHT LEFT WITHINR EACH.
[2023-07-28 04:32] VITALS: BP 113/65
[2023-07-28 04:54] LABS: BASOPHILS ABSOLUTE AUTO 0.01 K/mm3 (0.00-0.23); BASOPHILS PERCENT AUTO 0 % (0-2); EOSINOPHILS PERCENT AUTO 0 % (0-6); Hematocrit 32.7 % (37.0-53.0); Hemoglobin 10.5 g/dL (13.5-17.5); IMMATURE GRAN ABSOLUTE AUTO 0.05 K/mm3 (0.00-0.10); IMMATURE GRAN PERCENT AUTO 1 % (0-1); LYMPHOCYTES ABSOLUTE AUTO 1.38 K/mm3 (0.84-5.20); LYMPHOCYTES PERCENT AUTO 19 % (21-46); MONOCYTES ABSOLUTE AUTO 0.56 K/mm3 (0.16-1.47); MONOCYTES PERCENT AUTO 8 % (4-13); Mean Corpuscular HGB 29.1 pg (26.0-34.0); Mean Corpuscular HGB Conc 32.1 g/dL (31.5-36.5); Mean Corpuscular Volume 91 fL (80-100); Mean Platelet Volume 9.5 fL (9.1-12.4); NEUTROPHILS ABSOLUTE AUTO 5.17 K/mm3 (1.96-9.15); NEUTROPHILS PERCENT AUTO 72 % (41-73); Platelet Count 520 K/mm3 (150-400); RDW Coefficient Variation 14.6 % (11.7-14.2); RDW Standard Deviation 48.7 fL (35.1-46.3); Red Blood Cell Count 3.61 M/mm3 (4.30-5.90); White Blood Cell Count 7.17 K/mm3 (4.00-11.30)
[2023-07-28 05:51] LABS: Albumin, Blood 2.3 g/dL (3.4-5.0); Albumin/Globulin Ratio 0.4 (0.8-1.8); Bilirubin, Total 0.4 mg/dL (0.1-1.0); Bun/Creatinine Ratio 8.5 (12.0-20.0); Calcium, Blood 8.9 mg/dL (8.5-10.1); Creatinine, Blood 1.17 mg/dL (0.60-1.20); Globulin, Blood 5.4 g/dL (2.2-4.0); Potassium, Blood 4.1 mmol/L (3.5-5.5); Total Protein, Blood 7.7 g/dL (6.4-8.2)
[2023-07-28 06:54] VITALS: BP 114/75
[2023-07-28] MEDS ORDERED: AMOCLA875 PO (12:09)
--- NOTE | 2023-07-28 12:47 | NUR ---
SHIFT SUMMARY PT D/MERRITT HOME VIA INDEPENDENT AMBULATION WITH SPOUSE. VSS. NO ACUTE EVENTS. ALL BELONGINGS OUT OF ROOM. EDUCATION PROVIDED. POWERGLIDE REMOVED PRIOR TO D/C.
== END 2023-07-28 12:46 | disposition home or self-care (01) | DRG 393 ==
LOC: MEDS 12:30 → ENPENDDIS 07-28 11:53 → MEDS 07-28 12:46
PROVIDERS: Family Medicine; ADMIT Hospitalist
DX: K55.019 Acute (reversible) ischemia of small intestine, extent unspecified (principal); I81 Portal vein thrombosis; D68.69 Other thrombophilia; R78.81 Bacteremia; D73.5 Infarction of spleen; D64.9 Anemia, unspecified; D75.839 Thrombocytosis, unspecified; K76.0 Fatty (change of) liver, not elsewhere classified; J30.2 Other seasonal allergic rhinitis; Z79.01 Long term (current) use of anticoagulants; Z79.899 Other long term (current) drug therapy
CPT/HCPCS: 36415; 74177; 74183; 76705; 80053; 80076; 84145; 85025; 86038; 86709; 87040; A9270; A9579; C1751; J1650; J2543; J7050; Q9967

== ENCOUNTER 2023-08-07 18:05 | Inpatient (IN) | payer OTHER ==
[~2023-08-07] VITALS: Ht 172.7 cm; Wt 92.9 kg
[~2023-08-07 18:05] MED LIST changes: +AMOCLA875 PO; +KETO15TC TOP
[2023-08-07 18:59] LABS: BASOPHILS PERCENT AUTO 0 % (0-2); EOSINOPHILS ABSOLUTE AUTO 0.02 K/mm3 (0.00-0.68); EOSINOPHILS PERCENT AUTO 0 % (0-6); Hematocrit 36.5 % (37.0-53.0); Hemoglobin 11.7 g/dL (13.5-17.5); IMMATURE GRAN ABSOLUTE AUTO 0.02 K/mm3 (0.00-0.10); IMMATURE GRAN PERCENT AUTO 0 % (0-1); LYMPHOCYTES ABSOLUTE AUTO 1.82 K/mm3 (0.84-5.20); LYMPHOCYTES PERCENT AUTO 19 % (21-46); MONOCYTES ABSOLUTE AUTO 0.81 K/mm3 (0.16-1.47); MONOCYTES PERCENT AUTO 9 % (4-13); Mean Corpuscular HGB 28.7 pg (26.0-34.0); Mean Corpuscular HGB Conc 32.1 g/dL (31.5-36.5); Mean Corpuscular Volume 90 fL (80-100); Mean Platelet Volume 9.9 fL (9.1-12.4); NEUTROPHILS ABSOLUTE AUTO 6.85 K/mm3 (1.96-9.15); NEUTROPHILS PERCENT AUTO 72 % (41-73); Platelet Count 280 K/mm3 (150-400); RDW Coefficient Variation 14.6 % (11.7-14.2); RDW Standard Deviation 47.5 fL (35.1-46.3); Red Blood Cell Count 4.07 M/mm3 (4.30-5.90); White Blood Cell Count 9.52 K/mm3 (4.00-11.30)
[2023-08-07 19:06] LABS: Albumin, Blood 2.7 g/dL (3.4-5.0); Albumin/Globulin Ratio 0.5 (0.8-1.8); Bilirubin, Total 0.2 mg/dL (0.1-1.0); Bun/Creatinine Ratio 8.7 (12.0-20.0); Calcium, Blood 8.5 mg/dL (8.5-10.1); Creatinine, Blood 1.04 mg/dL (0.60-1.20); Globulin, Blood 5.1 g/dL (2.2-4.0); Potassium, Blood 3.6 mmol/L (3.5-5.5); Total Protein, Blood 7.8 g/dL (6.4-8.2)
[2023-08-07 19:41] LABS: International Normalized Ratio 1.19; Prothrombin Time Results 12.4 Sec (9.7-11.5)
[2023-08-07 19:52] LABS: Influenza A, PCR NEGATIVE (NEGATIVE); Influenza B, PCR NEGATIVE (NEGATIVE); Resp Syncytial Virus, PCR NEGATIVE (NEGATIVE); SARS-Cov-2 (COVID-19) PCR, MMC NEGATIVE (NEGATIVE)
[2023-08-07 20:04] LABS: Source, Urine Clean Catch
[2023-08-07 20:13] LABS: Appearance, Urine Clear (Clear); Bilirubin, Urine Neg (Neg); Blood, Urine Neg (Neg); Color, Urine Yellow (P-Yellow); Glucose Qualitative, Urine Neg (Neg); Ketones, Urine Neg (Neg); Leukocyte Esterase, Urine Neg (Neg); Nitrite, Urine Neg (Neg); Protein, Urine Neg (Neg); Specific Gravity, Urine 1.015 (1.003-1.022); Urobilinogen, Urine 1+ (Normal)
[2023-08-07 22:42] LABS: Anti-Xa UFH, PHA Monitoring 0.43 IU/mL
[2023-08-07 22:58] VITALS: BP 124/66
[2023-08-08 04:21] VITALS: BP 101/62
--- NOTE | 2023-08-08 06:10 | NUR ---
SHIFT SUMMARY PT ARRIVED TO THE FLOOR AT 2255 ON 08/07/23 AND COMES TO THE HOSPITAL WITH ABDOMINAL PAIN AND IS BELIEVED TO HAVE APPENDICITIS ALONG W/AN ENLARGED SPLEEN AT THIS TIME. PT DOES HAVE A SIGNIFICANT HISTORY OF HAVING SUPERIOR MESENTERIC VEIN THROMBOSIS WHERE HE WAS RECENTLY ADMITTED TO THE MEDICAL FLOOR FOR APPROX TWO WEEKS. PT'S VITAL SIGNS HAVE BEEN STABLE SINCE HE'S BEEN HERE AND HE HAS BEEN NPO SINCE MIDNIGHT FOR THE POSSIBILITY OF PROCEDURE TODAY. PHARMACY CONTACTED THIS RN TO STATE THAT THE HEPARIN DRIP, WHICH THE PT IS CURRENTLY ON, NEEDS TO BE STOPPED FOR FOUR HOURS PRIOR TO ANY SURGERY TO BE PERFOMRED. PT IS A&O, ON RA, AND IS INDEPENDENT IN THE ROOM. HE HAS NOT EXPERIENCED ANY N/V AT THIS TIME AND HIS PAIN IS WELL CONTROLLED. BED IS IN LOWEST POSITION, CALL LIGHT IS WITHIN REACH.
[2023-08-08 06:22] LABS: BASOPHILS PERCENT AUTO 0 % (0-2); EOSINOPHILS PERCENT AUTO 0 % (0-6); Hematocrit 35.4 % (37.0-53.0); Hemoglobin 11.1 g/dL (13.5-17.5); IMMATURE GRAN ABSOLUTE AUTO 0.04 K/mm3 (0.00-0.10); IMMATURE GRAN PERCENT AUTO 1 % (0-1); LYMPHOCYTES ABSOLUTE AUTO 2.24 K/mm3 (0.84-5.20); LYMPHOCYTES PERCENT AUTO 26 % (21-46); MONOCYTES ABSOLUTE AUTO 0.77 K/mm3 (0.16-1.47); MONOCYTES PERCENT AUTO 9 % (4-13); Mean Corpuscular HGB 28.2 pg (26.0-34.0); Mean Corpuscular HGB Conc 31.4 g/dL (31.5-36.5); Mean Corpuscular Volume 90 fL (80-100); NEUTROPHILS ABSOLUTE AUTO 5.45 K/mm3 (1.96-9.15); NEUTROPHILS PERCENT AUTO 64 % (41-73); Platelet Count 231 K/mm3 (150-400); RDW Coefficient Variation 14.6 % (11.7-14.2); RDW Standard Deviation 47.8 fL (35.1-46.3); Red Blood Cell Count 3.94 M/mm3 (4.30-5.90)
[2023-08-08 06:48] LABS: Albumin, Blood 2.7 g/dL (3.4-5.0); Albumin/Globulin Ratio 0.6 (0.8-1.8); Bilirubin, Total 0.4 mg/dL (0.1-1.0); Calcium, Blood 8.7 mg/dL (8.5-10.1); Creatinine, Blood 0.85 mg/dL (0.60-1.20); Globulin, Blood 4.9 g/dL (2.2-4.0); Magnesium, Blood 2.2 mg/dL (1.6-2.4); Potassium, Blood 3.8 mmol/L (3.5-5.5); Total Protein, Blood 7.6 g/dL (6.4-8.2)
[2023-08-08 08:57] VITALS: BP 131/83
[2023-08-08 15:15] VITALS: BP 123/81
--- NOTE | 2023-08-08 19:26 | NUR ---
SHIFT SUMMARY S/P SMV CLOT, A/OX4, VSS, TOLERATING PO, INDEPENDENT IN THE ROOM, AMBULATES W/O ASSISTANCE, VOIDING WELL, HEPARIN DRIP INFUSING T/O THE SHIFT WITH ONE SHORT PAUSE OF APPROXIMATELY 5 MINUTES THIS MORNING WHILE PLACING HIS POWERGLIDE FOR SECONDARY ACCESS TO RUN ABX WITHOUT INTERRUPTIG HEPARIN DRIP, PT ABLE TO MAKE NEEDS KNOWN, USES CALL LIGHT APPROPRIATELY, REPORTS SOME PAIN ON BOTH SIDES OF ABDOMEN BUT DENIES NEEDING ANY PAIN MEDICATIONS FOR IT. NO ACUTE EVENTS THIS SHIFT, CALL LIGHT IN REACH.
[2023-08-08 20:18] VITALS: BP 125/74
[2023-08-09 03:16] LABS: Hematocrit 35.8 % (37.0-53.0); Hemoglobin 11.3 g/dL (13.5-17.5); Mean Corpuscular HGB 28.5 pg (26.0-34.0); Mean Corpuscular HGB Conc 31.6 g/dL (31.5-36.5); Mean Corpuscular Volume 90 fL (80-100); Mean Platelet Volume 9.6 fL (9.1-12.4); Platelet Count 237 K/mm3 (150-400); RDW Coefficient Variation 14.4 % (11.7-14.2); RDW Standard Deviation 48.3 fL (35.1-46.3); Red Blood Cell Count 3.97 M/mm3 (4.30-5.90); White Blood Cell Count 8.48 K/mm3 (4.00-11.30)
[2023-08-09 03:18] VITALS: BP 104/77
[2023-08-09 03:36] LABS: Albumin, Blood 2.6 g/dL (3.4-5.0); Albumin/Globulin Ratio 0.5 (0.8-1.8); Bilirubin, Total 0.3 mg/dL (0.1-1.0); Bun/Creatinine Ratio 7.3 (12.0-20.0); Calcium, Blood 8.5 mg/dL (8.5-10.1); Creatinine, Blood 0.96 mg/dL (0.60-1.20); Potassium, Blood 4.2 mmol/L (3.5-5.5); Total Protein, Blood 7.6 g/dL (6.4-8.2)
--- NOTE | 2023-08-09 06:13 | NUR ---
PT VSS T/O NIGHT. PT DENIED ABD PAIN/N/V. PT CASEY PO, REP +FLATUS, IS VOIDING URINE W/O DIFFICULTY. HEPARIN GTT CONT PER ORDERS, RATE ADJUSTED X2 THIS SHIFT. PT AMB INDEP IN ROOM, CASEY WELL. IV ABX CONT PER ORDERS.
[2023-08-09 07:57] VITALS: BP 128/80
--- NOTE | 2023-08-09 08:46 | NUR ---
DENIES ANY PAIN OR ANY DISCOMFORT THIS AM, DR. SINCLAIR IN TO SEE PT THIS AM, OK'D FOR DC FROM HIS STANDPOINT, DR. OLIVEIRA NOTIFIED.
[2023-08-09] MEDS ORDERED: CIPR500 PO (10:40)
[2023-08-09] MEDS ORDERED: METR500 PO (10:41)
[2023-08-09] MEDS ORDERED: VISBIOME 112.51 EACH PO (10:42)
--- NOTE | 2023-08-09 12:41 | NUR ---
DENIES ANY PAIN, DC'D HOME, DC INSTRUCTIONS GIVEN, VERBALIZED UNDERSTANDING.
== END 2023-08-09 12:42 | disposition home or self-care (01) | DRG 395 ==
LOC: ER 18:05 → SURS 21:36
PROVIDERS: Emergency Medicine; Internal Medicine; ADMIT Student in an Organized Health Care Education/Training Program
DX: K55.059 Acute (reversible) ischemia of intestine, part and extent unspecified (principal); D73.5 Infarction of spleen; J30.2 Other seasonal allergic rhinitis; R16.2 Hepatomegaly with splenomegaly, not elsewhere classified; D64.9 Anemia, unspecified; Z79.01 Long term (current) use of anticoagulants; Z86.19 Personal history of other infectious and parasitic diseases; Z86.718 Personal history of other venous thrombosis and embolism
CPT/HCPCS: 0241U; 36415; 71045; 74175; 80053; 81003; 82947; 83605; 83690; 83735; 85025; 85027; 85520; 85610; 85730; 96361; 96365-59; 99285-25; A9270; J0295; J0696; J1644; J7030; J7120; Q9967

== ENCOUNTER 2023-08-13 17:52 | Emergency (ER) | payer OTHER ==
[~2023-08-13] VITALS: Ht 170.2 cm; Wt 72.6 kg
[~2023-08-13 17:52] MED LIST changes: +CIPR500 PO; +METR500 PO; +VISBIOME 112.51 EACH PO
[2023-08-13 18:21] VITALS: BP 95/78
[2023-08-13 18:43] LABS: BASOPHILS ABSOLUTE AUTO 0.01 K/mm3 (0.00-0.23); BASOPHILS PERCENT AUTO 0 % (0-2); EOSINOPHILS ABSOLUTE AUTO 0.01 K/mm3 (0.00-0.68); EOSINOPHILS PERCENT AUTO 0 % (0-6); Hematocrit 40.8 % (37.0-53.0); IMMATURE GRAN ABSOLUTE AUTO 0.05 K/mm3 (0.00-0.10); IMMATURE GRAN PERCENT AUTO 1 % (0-1); LYMPHOCYTES ABSOLUTE AUTO 1.42 K/mm3 (0.84-5.20); LYMPHOCYTES PERCENT AUTO 15 % (21-46); MONOCYTES ABSOLUTE AUTO 0.81 K/mm3 (0.16-1.47); MONOCYTES PERCENT AUTO 9 % (4-13); Mean Corpuscular HGB 27.8 pg (26.0-34.0); Mean Corpuscular HGB Conc 31.9 g/dL (31.5-36.5); Mean Corpuscular Volume 87 fL (80-100); Mean Platelet Volume 9.7 fL (9.1-12.4); NEUTROPHILS ABSOLUTE AUTO 6.95 K/mm3 (1.96-9.15); NEUTROPHILS PERCENT AUTO 75 % (41-73); Platelet Count 333 K/mm3 (150-400); RDW Coefficient Variation 14.6 % (11.7-14.2); RDW Standard Deviation 46.7 fL (35.1-46.3); Red Blood Cell Count 4.67 M/mm3 (4.30-5.90); White Blood Cell Count 9.25 K/mm3 (4.00-11.30)
[2023-08-13 19:07] LABS: Albumin, Blood 3.1 g/dL (3.4-5.0); Albumin/Globulin Ratio 0.6 (0.8-1.8); Bilirubin, Total 0.4 mg/dL (0.1-1.0); Calcium, Blood 9.2 mg/dL (8.5-10.1); Globulin, Blood 5.6 g/dL (2.2-4.0); Total Protein, Blood 8.7 g/dL (6.4-8.2)
== END 2023-08-13 20:53 | disposition left against medical advice (07) ==
LOC: ER 17:52
PROVIDERS: Student in an Organized Health Care Education/Training Program
DX: R10.12 Left upper quadrant pain (principal); Z53.21 Procedure and treatment not carried out due to patient leaving prior to being seen by health care provider
CPT/HCPCS: 80053; 83690; 85025; 99281